=== PATIENT | female | born 1975 | race Caucasian/White ===

== ENCOUNTER 2022-12-08 00:45 | Inpatient (IN) | payer OTHER, SELFPAY ==
[~2022-12-08] VITALS: Ht 162.6 cm; Wt 77.2 kg
[2022-12-08] MEDS ORDERED: NS 1,000 ML IV ONE ×2 (02:55→13:35)
[2022-12-08] MEDS ORDERED: LR 1,000 ML IV SCH (03:45)
[2022-12-08] MEDS ORDERED: GLUCAGON INJ 1MG VIAL SC PRN (03:45)
[2022-12-08] MEDS ORDERED: GLUCOSE 4GM CHEW TABLET PO PRN (03:45)
[2022-12-08] MEDS ORDERED: DEXTROSE 50% 50ML SYRINGE IV PRN (03:45)
[2022-12-08] MEDS ORDERED: LORazepam 2 MG/ML 1ML VIAL IV PRN (03:45)
[2022-12-08 03:48] LABS: BASO # 0.1 10^3/uL (0.0-0.2); EOS # 0.1 10^3/uL (0.0-0.5); HEMATOCRIT 43.9 % (36.0-47.0); HEMOGLOBIN 14.2 g/dl (12.0-15.5); LYMPH # 2.3 10^3/uL (1.5-5.0); LYMPH % 23.4 % (24.0-44.0); MEAN CORPUSCULAR HEMOGLOBIN 29.6 pg (27.0-33.0); MEAN CORPUSCULAR HGB CONC 32.3 g/dl (32.0-36.5); MEAN CORPUSCULAR VOLUME 91.5 fl (80.0-96.0); MONO # 0.8 10^3/uL (0.0-0.8); MONO % 7.8 % (2.0-8.0); NEUTROPHILS # 6.5 10^3/uL (1.5-8.5); NEUTROPHILS % 66.5 % (36.0-66.0); PLATELET COUNT, AUTOMATED 214 10^3/uL (150-450); WHITE BLOOD COUNT 9.8 10^3/uL (4.0-10.0)
[2022-12-08] MEDS ORDERED: ACETAMINOPHEN 650MG SUPP PR PRN (03:55)
[2022-12-08 04:07] LABS: ETHYL ALCOHOL (ETHANOL) < 0.003 % (0.000-0.010)
[2022-12-08 04:09] LABS: ACETAMINOPHEN LEVEL < 2.0 UG/ML (10.0-20.0); ALBUMIN 3.9 G/DL (3.2-5.2); ALKALINE PHOSPHATASE 85 U/L (46-116); ALT/SGPT 73 U/L (7.0-40); AST/SGOT 26 U/L (<34); BILIRUBIN,DIRECT 0.2 MG/DL (<0.4); BILIRUBIN,TOTAL 0.6 MG/DL (0.3-1.2); BLOOD UREA NITROGEN 17 MG/DL (9-23); CALCIUM LEVEL 8.2 MG/DL (8.5-10.1); CARBON DIOXIDE LEVEL 24 MMOL/L (20-31); CHLORIDE LEVEL 107 MMOL/L (98-107); CREATININE FOR GFR 0.91 MG/DL (0.55-1.30); GLOMERULAR FILTRATION RATE > 60.0 (>58); GLUCOSE, FASTING 79 MG/DL (60-100); POTASSIUM SERUM 4.8 MMOL/L (3.5-5.1); SALICYLATE LEVEL < 3.0 MG/DL (<30); SODIUM LEVEL 138 MMOL/L (136-145)
[2022-12-08] MEDS ORDERED: MED REC CURRENTLY UNOBTAINABLE XX SCH (04:10)
[2022-12-08 04:11] LABS: THYROID STIMULATING HORMONE 3.366 uIU/ML (0.55-4.78)
[2022-12-08 04:12] LABS: CPK CREATINE PHOSPHOKINASE 102 U/L (34-145)
[2022-12-08 07:58] VITALS: BP 155/76; TEMP 98.5; O2SAT 97
[2022-12-08 08:06] LABS: BARBITURATES URINE NEGATIVE (NEGATIVE); BENZODIAZEPINES URINE NEGATIVE (NEGATIVE); CANNABINOIDS URINE NEGATIVE (NEGATIVE); COCAINE METABOLITE URINE NEGATIVE (NEGATIVE); METHADONE URINE NEGATIVE (NEGATIVE); OPIATES URINE NEGATIVE (NEGATIVE); PHENCYCLIDINE URINE NEGATIVE (NEGATIVE)
[2022-12-08 08:09] LABS: AMPHETAMINES LEVEL URINE POSITIVE (NEGATIVE)
[2022-12-08 09:00] VITALS: O2SAT 98
[2022-12-08 10:00] VITALS: O2SAT 98
[2022-12-08 12:00] VITALS: BP 145/67; TEMP 98.8; O2SAT 100
[2022-12-08] MEDS ORDERED: OLANZapine ORAL DISINTEGRATING TAB 5MG PO PRN (13:20)
[2022-12-08 16:00] VITALS: BP 107/59; TEMP 98.4; O2SAT 98
[2022-12-08 19:47] VITALS: BP 144/81; TEMP 97.6; O2SAT 99
[2022-12-09 04:00] VITALS: BP 167/82; TEMP 98.4; O2SAT 98
[2022-12-09 05:46] LABS: BASO # 0.1 10^3/uL (0.0-0.2); EOS # 0.2 10^3/uL (0.0-0.5); EOS % 2.2 % (0.0-3.0); HEMATOCRIT 43.6 % (36.0-47.0); LYMPH # 2.2 10^3/uL (1.5-5.0); LYMPH % 25.6 % (24.0-44.0); MEAN CORPUSCULAR HEMOGLOBIN 30.2 pg (27.0-33.0); MEAN CORPUSCULAR HGB CONC 32.1 g/dl (32.0-36.5); MONO # 0.6 10^3/uL (0.0-0.8); MONO % 6.6 % (2.0-8.0); NEUTROPHILS # 5.5 10^3/uL (1.5-8.5); NEUTROPHILS % 64.3 % (36.0-66.0); PLATELET COUNT, AUTOMATED 190 10^3/uL (150-450); RED BLOOD COUNT 4.64 10^6/uL (4.00-5.40); WHITE BLOOD COUNT 8.6 10^3/uL (4.0-10.0)
[2022-12-09 06:15] LABS: ALBUMIN 3.4 G/DL (3.2-5.2); ALKALINE PHOSPHATASE 79 U/L (46-116); ALT/SGPT 55 U/L (7.0-40); AST/SGOT 41 U/L (<34); BILIRUBIN,TOTAL 0.6 MG/DL (0.3-1.2); BLOOD UREA NITROGEN 16 MG/DL (9-23); CARBON DIOXIDE LEVEL 22 MMOL/L (20-31); CHLORIDE LEVEL 108 MMOL/L (98-107); CREATININE FOR GFR 0.88 MG/DL (0.55-1.30); GLOMERULAR FILTRATION RATE > 60.0 (>58); GLUCOSE, FASTING 58 MG/DL (60-100); MAGNESIUM LEVEL 1.9 MG/DL (1.8-2.4); SODIUM LEVEL 138 MMOL/L (136-145); TOTAL PROTEIN 6.2 G/DL (5.7-8.2)
[2022-12-09] MEDS ORDERED: OLAN5ZYD PO (07:21)
[2022-12-09 08:00] VITALS: BP 155/69; TEMP 98.5; O2SAT 98
[2022-12-09] MEDS ORDERED: FLUoxetine 20MG CAP PO SCH (09:00)
[2022-12-09] MEDS ORDERED: ENOXAPARIN 40MG/0.4ML SYRINGE (J1650 PER 10MG) SC SCH (09:00)
[2022-12-09] MEDS ORDERED: buPROPion **XL** TABLET 150MG (WELLBUTRIN XL) PO SCH (09:00)
== END 2022-12-09 14:04 | DRG 812 ==
LOC: M ED 00:45 → M ED INP 03:41 → ENRESERV 06:51 → M ICU 07:51
PROVIDERS: ADMIT Family Medicine; ATTEND Family Medicine
DX: T45.0X2A Poisoning by antiallergic and antiemetic drugs, intentional self-harm, initial encounter (principal); G92.8 Other toxic encephalopathy; F33.2 Major depressive disorder, recurrent severe without psychotic features; F15.10 Other stimulant abuse, uncomplicated; T14.91XA Suicide attempt, initial encounter; H11.32 Conjunctival hemorrhage, left eye; Z88.1 Allergy status to other antibiotic agents; Z88.2 Allergy status to sulfonamides; S05.10XD Contusion of eyeball and orbital tissues, unspecified eye, subsequent encounter

== ENCOUNTER 2022-12-09 11:41 | Inpatient (IN) | payer OTHER ==
[~2022-12-09 11:41] MED LIST: OLAN5ZYD PO
[2022-12-09] MEDS ORDERED: MAALOX 30 ML SUSP *UDC PO PRN (12:20)
[2022-12-09] MEDS ORDERED: traZODone 50 MG TAB PO PRN (12:20)
[2022-12-09] MEDS ORDERED: MOM 30ML SUSPENSION UDC PO PRN (12:20)
[2022-12-09] MEDS ORDERED: IBUPROFEN 400MG TAB PO PRN (12:20)
[2022-12-09] MEDS ORDERED: ACETAMINOPHEN TAB 650MG DOSE (2X325MG) PO PRN (12:20)
[2022-12-09] MEDS ORDERED: diphenhydrAMINE 25MG CAP PO PRN (12:20)
[2022-12-09 14:14] VITALS: BP 130/74; TEMP 97.8; O2SAT 99
[2022-12-09] MEDS: NICOTINE 14 MG/24 HR TRANSDERMAL TD SCH (17:49)
[2022-12-10 06:23] VITALS: BP 147/77; TEMP 96.9; O2SAT 98
[2022-12-10] MEDS: FLUoxetine 20MG CAP PO SCH (12:05)
[2022-12-10] MEDS: BREXPIPRAZOLE 0.5MG TABLET (REXULTI) PO SCH (12:05)
[2022-12-10] MEDS: buPROPion **XL** TABLET 150MG (WELLBUTRIN XL) PO SCH (12:05)
[2022-12-10] MEDS: NICOTINE 14 MG/24 HR TRANSDERMAL TD SCH (12:06)
[2022-12-10 17:58] VITALS: BP 138/92; TEMP 98.2; O2SAT 99
[2022-12-11 06:44] VITALS: BP 152/72; TEMP 98.2; O2SAT 96
[2022-12-11] MEDS: BREXPIPRAZOLE 0.5MG TABLET (REXULTI) PO SCH (09:02)
[2022-12-11] MEDS: FLUoxetine 20MG CAP PO SCH (09:03)
[2022-12-11] MEDS: buPROPion **XL** TABLET 150MG (WELLBUTRIN XL) PO SCH (09:03)
[2022-12-11] MEDS: NICOTINE 14 MG/24 HR TRANSDERMAL TD SCH (09:04)
[2022-12-11 18:15] VITALS: BP 150/69; TEMP 97
[2022-12-12 06:40] VITALS: BP 159/83; TEMP 98; O2SAT 97
[2022-12-12] MEDS: FLUoxetine 20MG CAP PO SCH (08:49)
[2022-12-12] MEDS: NICOTINE 14 MG/24 HR TRANSDERMAL TD SCH (08:49)
[2022-12-12] MEDS: BREXPIPRAZOLE 0.5MG TABLET (REXULTI) PO SCH (08:50)
[2022-12-12] MEDS: buPROPion **XL** TABLET 150MG (WELLBUTRIN XL) PO SCH (08:50)
[2022-12-12 17:40] VITALS: BP 130/80; TEMP 98.6; O2SAT 100
[2022-12-13 06:12] VITALS: BP 154/72; TEMP 98.2; O2SAT 99
[2022-12-13] MEDS: NICOTINE 14 MG/24 HR TRANSDERMAL TD SCH (10:11)
[2022-12-13] MEDS: buPROPion **XL** TABLET 150MG (WELLBUTRIN XL) PO SCH (10:12)
[2022-12-13] MEDS: FLUoxetine 20MG CAP PO SCH (10:12)
[2022-12-13] MEDS: BREXPIPRAZOLE 0.5MG TABLET (REXULTI) PO SCH (10:12)
[2022-12-13] MEDS: ONDANSETRON 4MG TAB PO PRN (15:26)
[2022-12-13 18:15] VITALS: BP 128/71; TEMP 97.7; O2SAT 97
[2022-12-14 06:16] VITALS: BP 126/67; TEMP 98.6; O2SAT 96
[2022-12-14] MEDS: NICOTINE 14 MG/24 HR TRANSDERMAL TD SCH (10:23)
[2022-12-14] MEDS: buPROPion **XL** TABLET 150MG (WELLBUTRIN XL) PO SCH (10:23)
[2022-12-14] MEDS: FLUoxetine 20MG CAP PO SCH (10:23)
[2022-12-14] MEDS: BREXPIPRAZOLE 0.5MG TABLET (REXULTI) PO SCH (10:24)
[2022-12-14] MEDS: ONDANSETRON 4MG TAB PO PRN (16:03)
[2022-12-14 18:36] VITALS: BP 118/61; TEMP 97.6; O2SAT 97
[2022-12-15 06:02] VITALS: BP 116/74; TEMP 97.9; O2SAT 96
[2022-12-15] MEDS: NICOTINE 14 MG/24 HR TRANSDERMAL TD SCH (09:21)
[2022-12-15] MEDS: FLUoxetine 20MG CAP PO SCH (09:21)
[2022-12-15] MEDS: buPROPion **XL** TABLET 150MG (WELLBUTRIN XL) PO SCH (09:22)
[2022-12-15] MEDS: BREXPIPRAZOLE 0.5MG TABLET (REXULTI) PO SCH (09:22)
[2022-12-15 18:07] VITALS: BP 120/57; TEMP 98.7; O2SAT 97
[2022-12-16 06:24] VITALS: BP 134/66; TEMP 97.5; O2SAT 100
[2022-12-16] MEDS ORDERED: REXU1TAB2 PO (08:57)
[2022-12-16] MEDS ORDERED: BUPR150T12 PO (08:57)
[2022-12-16] MEDS ORDERED: FLUO20CA22 PO (08:57)
[2022-12-16] MEDS ORDERED: NICO14PA TD (08:57)
[2022-12-16] MEDS: NICOTINE 14 MG/24 HR TRANSDERMAL TD SCH (09:18)
[2022-12-16] MEDS: BREXPIPRAZOLE 0.5MG TABLET (REXULTI) PO SCH (09:18)
[2022-12-16] MEDS: FLUoxetine 20MG CAP PO SCH (09:18)
[2022-12-16] MEDS: buPROPion **XL** TABLET 150MG (WELLBUTRIN XL) PO SCH (09:18)
[2022-12-17] MEDS ORDERED: REXU1TAB3 PO (10:13)
== END 2022-12-16 13:11 | disposition home or self-care (01) | DRG 751 ==
LOC: M PSY 14:11
PROVIDERS: ADMIT Student in an Organized Health Care Education/Training Program; ATTEND Student in an Organized Health Care Education/Training Program
DX: F33.2 Major depressive disorder, recurrent severe without psychotic features (principal); F15.10 Other stimulant abuse, uncomplicated; F12.10 Cannabis abuse, uncomplicated; Z91.51 Personal history of suicidal behavior; I10 Essential (primary) hypertension; G43.909 Migraine, unspecified, not intractable, without status migrainosus; F17.200 Nicotine dependence, unspecified, uncomplicated; F11.10 Opioid abuse, uncomplicated; Z79.899 Other long term (current) drug therapy; Z88.2 Allergy status to sulfonamides; Z88.1 Allergy status to other antibiotic agents; Z81.8 Family history of other mental and behavioral disorders; Z56.0 Unemployment, unspecified

== ENCOUNTER 2023-11-13 13:51 | Emergency (ER) | payer OTHER ==
[~2023-11-13] VITALS: Ht 170.2 cm; Wt 77.2 kg
[~2023-11-13 13:51] MED LIST changes: +BUPR150T12 PO; +FLUO-365 PO; +NICO14PA TD; +REXU1TAB2 PO; +REXU1TAB3 PO
[2023-11-13 15:35] LABS: BASO # 0.1 10^3/uL (0.0-0.2); BASO % 0.8 % (0.0-1.0); EOS # 0.3 10^3/uL (0.0-0.5); EOS % 2.4 % (0.0-3.0); HEMATOCRIT 46.4 % (36.0-47.0); LYMPH % 17.6 % (24.0-44.0); MEAN CORPUSCULAR HEMOGLOBIN 30.1 pg (27.0-33.0); MEAN CORPUSCULAR HGB CONC 32.3 g/dl (32.0-36.5); MEAN CORPUSCULAR VOLUME 93.2 fl (80.0-96.0); MONO # 0.7 10^3/uL (0.0-0.8); MONO % 6.1 % (2.0-8.0); NEUTROPHILS # 8.2 10^3/uL (1.5-8.5); NEUTROPHILS % 72.7 % (36.0-66.0); PLATELET COUNT, AUTOMATED 251 10^3/uL (150-450); RED BLOOD COUNT 4.98 10^6/uL (4.00-5.40); WHITE BLOOD COUNT 11.3 10^3/uL (4.0-10.0)
[2023-11-13 15:42] LABS: ERYTHROCYTE SEDIMENTATION RATE 31 mm/hr (0-20)
[2023-11-13 15:58] LABS: C REACTIVE PROTEIN QUANTITATIV < 0.40 MG/DL (<1.0)
[2023-11-13 15:59] LABS: BLOOD UREA NITROGEN 17 MG/DL (9-23); CALCIUM LEVEL 8.5 MG/DL (8.5-10.1); CARBON DIOXIDE LEVEL 28 MMOL/L (20-31); CHLORIDE LEVEL 105 MMOL/L (98-107); CREATININE FOR GFR 0.66 MG/DL (0.55-1.30); GLOMERULAR FILTRATION RATE > 60.0 (>58); GLUCOSE, FASTING 91 MG/DL (60-100); MAGNESIUM LEVEL 1.8 MG/DL (1.8-2.4); POTASSIUM SERUM 4.4 MMOL/L (3.5-5.1); SODIUM LEVEL 138 MMOL/L (136-145)
[2023-11-13] MEDS: NS 1,000 ML IV ONE (16:56)
[2023-11-13] MEDS: KETOROLAC 30 MG/ML 1ML VIAL IV ONE (16:57)
[2023-11-13] MEDS: METOCLOPRAMIDE INJ 10MG/2ML VIAL IV ONE (16:59)
[2023-11-13 18:18] VITALS: BP 159/86; TEMP 97.6; O2SAT 98
[2023-11-13] MEDS ORDERED: NAPR-885 PO (18:29)
[2023-11-13] MEDS ORDERED: ONDA-282 PO (18:29)
== END 2023-11-13 18:43 | disposition home or self-care (01) ==
LOC: M ED 13:51
DX: G43.909 Migraine, unspecified, not intractable, without status migrainosus (principal); G40.909 Epilepsy, unspecified, not intractable, without status epilepticus; F17.210 Nicotine dependence, cigarettes, uncomplicated; Z88.2 Allergy status to sulfonamides; Z88.1 Allergy status to other antibiotic agents; Z79.899 Other long term (current) drug therapy
CPT/HCPCS: 80048; 83735; 85025; 85652; 86140; 96361; 96374; 96375; 99283; J1885; J2765